=== PATIENT | male | born 1975 | race Caucasian/White ===

== ENCOUNTER 2024-04-27 17:35 | Emergency (ER) | payer BC ==
[~2024-04-27] VITALS: Ht 177.8 cm; Wt 92.1 kg
[2024-04-27 18:04] VITALS: BP 139/82; PULSE 60; RESP 18; TEMP 98.9; O2SAT 99
[2024-04-27 18:20] VITALS: BP 130/82; PULSE 60; RESP 18; TEMP 98; O2SAT 99
[2024-04-27] MEDS ORDERED: AMOX875T3 PO (18:22)
== END 2024-04-27 18:20 | disposition home or self-care (01) ==
LOC: MED 17:35
DX: K08.89 Other specified disorders of teeth and supporting structures (principal); H92.01 Otalgia, right ear; R09.81 Nasal congestion; R09.82 Postnasal drip; Z79.2 Long term (current) use of antibiotics
CPT/HCPCS: 99283